=== PATIENT | female | born 1945 | race Caucasian/White ===

== ENCOUNTER 2017-06-22 12:51 | Emergency (ER) | payer OTHER, MEDICARE ==
[2017-06-22 13:00] VITALS: BP 142/94
--- NOTE | 2017-06-22 14:13 | CR ---
Chest and right ribs: Frontal view of the chest was obtained as well as 3 views of the right ribs. Comparison: Previous chest and right rib exam of 01/24/16. Old healed left-sided rib fracture is noted. Lungs are clear. Heart size and mediastinum are within normal limits. Multiple surgical clips are seen within the upper abdomen as well as at the gastroesophageal junction. No discrete fracture or other right sided rib abnormality is seen. Impression: 1. Old left-sided rib fracture is seen. 2. Nothing acute seen on chest x-ray. 3. No definite right-sided rib fracture is seen. Nondisplaced fracture could be missed. Diagnostic code #2
--- NOTE | 2017-06-22 14:22 | EDM.PDOC ---
ED HPI GENERAL MEDICAL PROBLEM - General Chief Complaint: Chest Pain Stated Complaint: POSS BROKEN RIB Time Seen by Provider: 06/22/17 13:13 Source of Information: Reports: Patient, Family (spouse), RN Notes Reviewed - History of Present Illness INITIAL COMMENTS - FREE TEXT/NARRATIVE: 71 year old female that injured her R chest wall 1 week ago, fell against a wooden box with bruising to R mid lateral back and also pain R anterior ribs. Pain was tolerable until she reached for something 2 days ago, felt a "pop" R anterior lower chest with severe pain with motion R anterior chest since than, pain is worse with moving, deep breathing. Has a bruise R upper leg but no other major pain or injury. Right Chest Pain Score (Numeric/FACES): 10 - Related Data Allergies Allergy/AdvReac Type Severity Reaction Status Date / Time Iodinated Contrast- Oral and Allergy Hives Verified 06/22/17 13:00 IV Dye [Iodinated Contrast Media - IV Dye] iodine Allergy Hives Verified 06/22/17 13:00 Home Meds: Home Meds Acetaminophen with Codeine [Tylenol with Codeine #3 Tablet] 1 tab PO Q6HR PRN [History] Bisoprolol [Zebeta] 10 mg PO DAILY 06/22/17 [History] Canagliflozin [Invokana] 100 mg PO DAILY 06/22/17 [History] ClonazePAM [KlonoPIN] 0.5 mg PO BEDTIME 06/22/17 [History] FLUoxetine [PROzac] 30 mg PO DAILY 06/22/17 [History] Hydrochlorothiazide 25 mg PO DAILY 06/22/17 [History] Melatonin 10 mg PO BEDTIME 06/22/17 [History] Vit B12 Injection. 06/22/17 [History] Vit D3 & K/Berberine HCl/Hops [Ostera] 1 tab PO DAILY 06/22/17 [History] Vit E/Zn/Lut/Lyco/Bilber/Hb261 [Lipotriad Vision Support Plus] 1 tab PO DAILY [History] amLODIPine [Norvasc] 5 mg PO DAILY 06/22/17 [History] glipiZIDE [Glipizide Xl] 2.5 mg PO DAILY 06/22/17 [History] rOPINIRole [Requip] 0.5 mg PO DAILY 06/22/17 [History] Past Medical History Cardiovascular History: Reports: Hypertension Gastrointestinal History: Reports: Colon Polyp, GERD, PUD, Other (See Below) Musculoskeletal History: Reports: Fibromyalgia, RA Neurological History: Reports: Migraines Endocrine/Metabolic History: Reports: Diabetes, Type II Oncologic (Cancer) History: Reports: Breast - Past Surgical History HEENT Surgical History: Reports: Cataract Surgery, Other (See Below) GI Surgical History: Reports: Appendectomy, Cholecystectomy, Other (See Below) Female Surgical History: Reports: Breast Reconstruction, D&C, Hysterectomy, Mastectomy Social & Family History - Tobacco Use Smoking Status *Q: Unknown Ever Smoked - Recreational Drug Use Recreational Drug Use: No - Living Situation & Occupation Living situation: Reports: , with Spouse Occupation: Retired ED ROS GENERAL - Review of Systems Review Of Systems: See Below Constitutional: Denies: Fever, Chills, Diaphoresis HEENT: Reports: No Symptoms Respiratory: Reports: Pleuritic Chest Pain. Denies: Shortness of Breath, Cough , Hemoptysis Cardiovascular: Reports: Chest Pain GI/Abdominal: Denies: Abdominal Pain, Nausea, Vomiting : Reports: No Symptoms Musculoskeletal: Reports: Back Pain (R upper lateral mid back) Skin: Reports: Bruising ED EXAM, GENERAL - Physical Exam Exam: See Below General Appearance: Alert, Mild Distress Eye Exam: Bilateral Eye: PERRL Head: Atraumatic Neck: Supple, Non-Tender Respiratory/Chest: No Respiratory Distress, Lungs Clear, Normal Breath Sounds, Other (tender R lower anterior ribs, brusing R lateral posterior chest wall) Cardiovascular: Regular Rate, Rhythm GI/Abdominal: Soft, Non-Tender. No: Guarding Back Exam: Other (bruising R upper lateral mid back). No: Paraspinal Tenderness , Vertebral Tenderness Extremities: Normal Range of Motion, Other (bruising R lateral thigh, no bony tenderness) Neurological: Alert, Oriented, No Motor/Sensory Deficits Skin Exam: Warm, Dry Course - Vital Signs Last Recorded V/S: Last Vital Signs Temp 98.2 F 06/22/17 12:57 Pulse 77 06/22/17 12:57 Resp 18 06/22/17 12:57 BP 142/94 H 06/22/17 12:57 Pulse Ox 95 06/22/17 13:00 - Re-Assessments/Exams Free Text/Narrative Re-Assessment/Exam: 06/22/17 14:17 no obvious rib fx Departure - Departure Time of Disposition: 14:22 Disposition: Home, Self-Care 01 Condition: Fair Clinical Impression: Fall Qualifiers: Encounter type: initial encounter Qualified Code(s): W19.XXXA - Unspecified fall, initial encounter Chest wall contusion Qualifiers: Encounter type: initial encounter Laterality: right Qualified Code(s): S20.211A - Contusion of right front wall of thorax, initial encounter Instructions: Fall Prevention in the Home, [id number], Contusion, Easy-to- Read, Chest Contusion, [id number] Referrals: Davis Ray MD [Primary Care Provider] - Forms: ED Department Discharge Additional Instructions: rest, avoid heavy lifting, alternate ice and heat as needed, continue tylenol or tylenol with codeine 2 to 3 times daily as needed for pain, follow up clinic if not much better within 10 to 14 days as expected.
== END 2017-06-22 14:37 | disposition home or self-care (01) ==
LOC: JD.ED 12:51
DX: S20.211A Contusion of right front wall of thorax, initial encounter (principal); S70.11XA Contusion of right thigh, initial encounter; I10 Essential (primary) hypertension; K21.9 Gastro-esophageal reflux disease without esophagitis; E11.9 Type 2 diabetes mellitus without complications; Z85.3 Personal history of malignant neoplasm of breast; Z98.49 Cataract extraction status, unspecified eye; Z90.49 Acquired absence of other specified parts of digestive tract; Z90.710 Acquired absence of both cervix and uterus; Z90.10 Acquired absence of unspecified breast and nipple; Z79.899 Other long term (current) drug therapy; Z88.8 Allergy status to other drugs, medicaments and biological substances; Z91.041 Radiographic dye allergy status; W01.0XXA Fall on same level from slipping, tripping and stumbling without subsequent striking against object, initial encounter
CPT/HCPCS: 71101-26-RT; 71101-RT; 99282; 99284

== ENCOUNTER 2018-03-21 05:58 | Emergency (ER) | payer MEDICARE, OTHER ==
[2018-03-21 06:10] VITALS: BP 166/95
--- NOTE | 2018-03-21 06:34 | EDM.PDOC ---
ED HPI GENERAL MEDICAL PROBLEM - General Chief Complaint: Lower Extremity Injury/Pain Stated Complaint: poss foot injury Time Seen by Provider: 03/21/18 06:25 Source of Information: Reports: Patient, RN Notes Reviewed - History of Present Illness INITIAL COMMENTS - FREE TEXT/NARRATIVE: 72-year-old lady injured right foot 2 days ago. She was walking with her cane and accidentally brought her cane down with "considerable force" onto the distal aspect of her right foot. She has had quite bothersome discomfort of that area of her foot since the injury. Mild discomfort at rest but continued quite severe pain with weightbearing. No other recent injury. Right Feet Pain Score (Numeric/FACES): 10 - Related Data Allergies Allergy/AdvReac Type Severity Reaction Status Date / Time Iodinated Contrast- Oral and Allergy Hives Verified 06/22/17 13:00 IV Dye [Iodinated Contrast Media - IV Dye] iodine Allergy Hives Verified 06/22/17 13:00 Home Meds: Home Meds Acetaminophen with Codeine [Tylenol with Codeine #3 Tablet] 1 tab PO Q6HR PRN [History] Bisoprolol [Zebeta] 10 mg PO DAILY 06/22/17 [History] Canagliflozin [Invokana] 100 mg PO DAILY 06/22/17 [History] ClonazePAM [KlonoPIN] 0.5 mg PO BEDTIME 06/22/17 [History] FLUoxetine [PROzac] 40 mg PO DAILY 06/22/17 [History] Hydrochlorothiazide 25 mg PO DAILY 06/22/17 [History] Melatonin 10 mg PO BEDTIME 06/22/17 [History] Vit B12 Injection. 1 injection IM ASDIRECTED 06/22/17 [History] Vit D3 & K/Berberine HCl/Hops [Ostera] 1 tab PO DAILY 06/22/17 [History] Vit E/Zn/Lut/Lyco/Bilber/Hb261 [Lipotriad Vision Support Plus] 1 tab PO DAILY [History] amLODIPine [Norvasc] 5 mg PO DAILY 06/22/17 [History] glipiZIDE [Glipizide Xl] 2.5 mg PO DAILY 06/22/17 [History] rOPINIRole [Requip] 1 mg PO DAILY 06/22/17 [History] ALPRAZolam [Alprazolam] 0.5 mg PO DAILY 03/21/18 [History] ALPRAZolam [Xanax XR] 0.5 mg PO BEDTIME 03/21/18 [History] Lidocaine 5% [Lidoderm 5%] 1 patch TOP ASDIRECTED PRN 03/21/18 [History] rOPINIRole [Requip] 2 mg PO BEDTIME 03/21/18 [History] Past Medical History Cardiovascular History: Reports: Hypertension Gastrointestinal History: Reports: Colon Polyp, GERD, PUD Musculoskeletal History: Reports: Fibromyalgia, RA Neurological History: Reports: Migraines Psychiatric History: Reports: Anxiety Endocrine/Metabolic History: Reports: Diabetes, Type II Oncologic (Cancer) History: Reports: Breast - Past Surgical History HEENT Surgical History: Reports: Cataract Surgery GI Surgical History: Reports: Appendectomy, Cholecystectomy, Other (See Below) Other GI Surgeries/Procedures: gasterectomy Female Surgical History: Reports: Breast Reconstruction, D&C, Hysterectomy, Mastectomy Oncologic Surgical History: Reports: Mastectomy Social & Family History - Family History Family Medical History: Noncontributory - Tobacco Use Smoking Status *Q: Never Smoker - Recreational Drug Use Recreational Drug Use: No - Living Situation & Occupation Living situation: Reports: , with Spouse Occupation: Retired Review of Systems - Review of Systems Review Of Systems: See Below Constitutional: Reports: No Symptoms Mouth/Throat: Reports: No Symptoms Respiratory: Reports: No Symptoms Cardiovascular: Denies: Chest Pain GI/Abdominal: Denies: Abdominal Pain, Nausea, Vomiting Musculoskeletal: Reports: Foot Pain (Right foot) Skin: Reports: Bruising (Mild right foot) Neurological: Denies: Numbness, Tingling ED EXAM, GENERAL - Physical Exam Exam: See Below General Appearance: Alert, No Apparent Distress Head: Atraumatic Neck: Supple Respiratory/Chest: No Respiratory Distress Extremities: Joint Swelling (There is tenderness, mild swelling and very mild bruising of the MTP area second third and fourth toes of right foot. No visible deformity. Mild localized swelling.). No: Increased Warmth, Redness Neurological: No Motor/Sensory Deficits Course - Vital Signs Last Recorded V/S: Last Vital Signs Temp 97.3 F 03/21/18 06:07 Pulse 97 03/21/18 06:07 Resp 16 03/21/18 06:07 BP 166/95 H 03/21/18 06:07 Pulse Ox 94 L 03/21/18 06:07 - Orders/Labs/Meds Orders: Active Orders 24 hr Category Date Time Status Foot Comp Min 3V Rt [CR] Stat Exams 03/21/18 06:30 Taken - Re-Assessments/Exams Free Text/Narrative Re-Assessment/Exam: 03/21/18 06:54 X-rays of foot,no fracture seen Departure - Departure Time of Disposition: 06:15 Disposition: Home, Self-Care 01 Condition: Fair Clinical Impression: Contusion of foot Qualifiers: Encounter type: initial encounter Laterality: right Qualified Code(s): S90.31XA - Contusion of right foot, initial encounter - Discharge Information Instructions: Foot Contusion, [id number] Referrals: Davis Ray MD [Primary Care Provider] - Forms: ED Department Discharge Additional Instructions: Rest and elevate foot as much as possible, ice packs as needed for swelling, you may take Tylenol 3-4 times daily as needed for discomfort, follow up clinic and have rechecked if not much better within 3-5 days as expected - My Orders Last 24 Hours: My Active Orders 03/21/18 06:30 Foot Comp Min 3V Rt [CR] Stat - Assessment/Plan Last 24 Hours: My Active Orders 03/21/18 06:30 Foot Comp Min 3V Rt [CR] Stat
--- NOTE | 2018-03-21 07:36 | CR ---
Right foot: Four views of the right foot were obtained. Soft tissue swelling is seen. Spur noted off the plantar margin and at the attachment of the Achilles tendon to the calcaneus. Degenerative change is noted within the first MTP joint. On the lateral view there is a detached bony density being seen to be involving the base of the proximal phalanx of the first digit. Uncertain if this is acute or chronic or possibly both. Old corner fracture is felt to be present involving the distal corner of the middle phalanx of the second toe. Acute fracture felt to be present within the mid to distal shaft of the proximal phalanx of the fourth toe. Old healed fracture deformity seen within the proximal phalanx of the fifth toe. No additional abnormality is seen. Impression: 1. Nondisplaced fracture involving the shaft of the proximal phalanx of the fourth toe. 2. Degenerative change within the first MTP joint. Detached bony density noted off the base of the proximal phalanx of the first digit as seen on the lateral view which appears mostly old but difficult to exclude a small acute fracture. 3. Other incidental findings. Diagnostic code #3
== END 2018-03-21 07:02 | disposition home or self-care (01) ==
LOC: JD.ED 05:58
DX: S92.514A Nondisplaced fracture of proximal phalanx of right lesser toe(s), initial encounter for closed fracture (principal); E11.9 Type 2 diabetes mellitus without complications; K21.9 Gastro-esophageal reflux disease without esophagitis; I10 Essential (primary) hypertension; Z90.49 Acquired absence of other specified parts of digestive tract; Z79.84 Long term (current) use of oral hypoglycemic drugs; Z79.899 Other long term (current) drug therapy
CPT/HCPCS: 73630-26-RT; 73630-RT; 99283

== ENCOUNTER 2018-03-26 11:16 | Emergency (ER) | payer OTHER, MEDICARE ==
[2018-03-26 11:26] VITALS: BP 160/88
--- NOTE | 2018-03-26 11:27 | EDM.PDOC ---
ED HPI GENERAL MEDICAL PROBLEM - General Chief Complaint: Chest Pain Stated Complaint: RIB PAIN Time Seen by Provider: 03/26/18 11:26 Source of Information: Reports: Patient History Limitations: Reports: No Limitations - History of Present Illness INITIAL COMMENTS - FREE TEXT/NARRATIVE: Desire is a pleasant 72yo female patient, known to me, presents ambulatory to ED today with complaints of lt sided rib pain s/p fall onto table at home after losing her balance. Pain is worsening. She has taken tylenol, tylenol with codeine, heating pad, and a patch OTC for pain. She has difficulty sleeping and moving around. No CP, SOB, cough, dizziness or other associated symptoms. She is ambulating with a cane due to a torn muscle in her left thigh. She tells me she is scheduled to go to [facility] for repair of this sometime this month. She does not have good balance with this injury which has been chronic for her since July. Onset: Gradual (gradual worsening pain s/p fall 5 days ago) Location: Reports: Chest (left mid to lower ribs) Quality: Reports: Dull (all the time), Sharp (with movements) Severity: Moderate Improves with: Reports: Heat Therapy, Rest Worsens with: Reports: Movement (and laying on either side) Associated Symptoms: Denies: Cough, Diaphoresis, Fever/Chills, Nausea/Vomiting, Shortness of Breath, Syncope Left Chest Pain Score (Numeric/FACES): 10 - Related Data Allergies Allergy/AdvReac Type Severity Reaction Status Date / Time Iodinated Contrast- Oral and Allergy Hives Verified 03/26/18 11:22 IV Dye [Iodinated Contrast Media - IV Dye] iodine Allergy Hives Verified 03/26/18 11:22 Home Meds: Home Meds Acetaminophen with Codeine [Tylenol with Codeine #3 Tablet] 1 tab PO Q6HR PRN [History] Bisoprolol [Zebeta] 10 mg PO DAILY 06/22/17 [History] Canagliflozin [Invokana] 100 mg PO DAILY 06/22/17 [History] ClonazePAM [KlonoPIN] 0.5 mg PO BEDTIME 06/22/17 [History] FLUoxetine [PROzac] 40 mg PO DAILY 06/22/17 [History] Hydrochlorothiazide 25 mg PO DAILY 06/22/17 [History] Melatonin 10 mg PO BEDTIME 06/22/17 [History] Vit B12 Injection. 1 injection IM ASDIRECTED 06/22/17 [History] Vit D3 & K/Berberine HCl/Hops [Ostera] 1 tab PO DAILY 06/22/17 [History] amLODIPine [Norvasc] 5 mg PO DAILY 06/22/17 [History] glipiZIDE [Glipizide Xl] 2.5 mg PO DAILY 06/22/17 [History] rOPINIRole [Requip] 1 mg PO DAILY 06/22/17 [History] ALPRAZolam [Alprazolam] 0.5 mg PO DAILY 03/21/18 [History] ALPRAZolam [Xanax XR] 0.5 mg PO BEDTIME 03/21/18 [History] Lidocaine 5% [Lidoderm 5%] 1 patch TOP ASDIRECTED PRN 03/21/18 [History] rOPINIRole [Requip] 2 mg PO BEDTIME 03/21/18 [History] Past Medical History Cardiovascular History: Reports: Hypertension Gastrointestinal History: Reports: Colon Polyp, GERD, PUD Musculoskeletal History: Reports: Fibromyalgia, RA Neurological History: Reports: Migraines Psychiatric History: Reports: Anxiety Endocrine/Metabolic History: Reports: Diabetes, Type II Oncologic (Cancer) History: Reports: Breast - Past Surgical History HEENT Surgical History: Reports: Cataract Surgery GI Surgical History: Reports: Appendectomy, Cholecystectomy, Other (See Below) Other GI Surgeries/Procedures: gasterectomy Female Surgical History: Reports: Breast Reconstruction, D&C, Hysterectomy, Mastectomy Oncologic Surgical History: Reports: Mastectomy Social & Family History - Family History Family Medical History: Noncontributory - Tobacco Use Smoking Status *Q: Never Smoker - Recreational Drug Use Recreational Drug Use: No - Living Situation & Occupation Living situation: Reports: , with Spouse Occupation: Retired ED ROS GENERAL - Review of Systems Review Of Systems: See Below Constitutional: Reports: No Symptoms HEENT: Reports: No Symptoms Respiratory: Reports: No Symptoms. Denies: Shortness of Breath, Cough Cardiovascular: Reports: No Symptoms. Denies: Chest Pain, Dyspnea on Exertion, Orthopnea GI/Abdominal: Reports: No Symptoms Musculoskeletal: Reports: Other (left sided mid to lower rib pain) Skin: Reports: No Symptoms Hematologic/Lymphatic: Reports: Other (s/p breast ca with mastectomy to lt side) ED EXAM, GENERAL - Physical Exam Exam: See Below Exam Limited By: No Limitations General Appearance: Alert, WD/WN, No Apparent Distress, Other (pleasant and talkative) Eye Exam: Bilateral Eye: EOMI, PERRL Ears: Normal External Exam, Hearing Grossly Normal Nose: Normal Inspection Throat/Mouth: Normal Inspection, Normal Lips, Normal Voice, No Airway Compromise Head: Atraumatic, Normocephalic Neck: Normal Inspection Respiratory/Chest: No Respiratory Distress, Lungs Clear, Normal Breath Sounds. No: No Accessory Muscle Use Cardiovascular: Regular Rate, Rhythm, No Murmur GI/Abdominal: Normal Bowel Sounds, Soft, Non-Tender (Female) Exam: Deferred Rectal (Female) Exam: Deferred Neurological: Alert, Oriented, Normal Cognition Psychiatric: Normal Affect, Normal Mood Skin Exam: Warm, Dry, Intact, Other (surgical scar from mastectomy to left chest wall; no ecchymosis, no crepitus about chest wall tissues. chest wall to left mediolateral side, mid to lower ribs is tender with palpation. ) Course - Vital Signs Last Recorded V/S: Last Vital Signs Temp 97.6 F 03/26/18 11:22 Pulse 80 03/26/18 11:22 Resp 18 03/26/18 11:22 BP 160/88 H 03/26/18 11:22 Pulse Ox 92 L 03/26/18 11:22 - Orders/Labs/Meds Orders: Active Orders 24 hr Category Date Time Status Ribs 2V w Chest Lt [CR] Stat Exams 03/26/18 11:40 Taken Meds: Medications Discontinued Medications Generic Name Dose Route Start Last Admin Trade Name Deshawn PRN Reason Stop Dose Admin Tizanidine HCl 4 mg 03/26/18 21:00 Zanaflex PO 03/26/18 21:01 DAILY ONE Tizanidine HCl 4 mg 03/26/18 11:46 03/26/18 11:55 Zanaflex PO 03/26/18 11:47 4 mg DAILY ONE Administration - Radiology Interpretation Free Text/Narrative:: 2 view CXR and 2 view lt rib films reviewed with Dr. Aleman: suspicious for 2 hairline lateral rib fractures--will await radiologist final interp. - Re-Assessments/Exams Free Text/Narrative Re-Assessment/Exam: 03/26/18 11:48 zanaflex ordered PO prior to xray. Rib and CXR ordered. Free Text/Narrative Re-Assessment/Exam: 03/26/18 12:48 After xanaflex patient feels pain is less, specifically with rest. Departure - Departure Time of Disposition: 12:48 Disposition: Home, Self-Care 01 Condition: Good Clinical Impression: Fracture of rib Qualifiers: Encounter type: initial encounter Rib fracture type: multiple ribs Fracture type: closed Laterality: left Qualified Code(s): S22.42XA - Multiple fractures of ribs, left side, initial encounter for closed fracture Instructions: Rib Fracture, [id number] Forms: ED Department Discharge Additional Instructions: Likely 2 hairline rib fractures present on xrays; awaiting Radiologists final interpretation. Rib fractures and rib contusions are treated the same. Continue with tylenol or ibuprofen 3 times daily with food for discomfort, can continue with the patch that you are using at home and heat. Recommend deep breathing exercises every hour while awake. Prescription for muscle relaxant will be sent home; zanaflex by mouth twice daily as needed; do not take codeine or other narcotic medications with this. Recommend no driving while taking this muscle relaxant due to possible sedation. Follow up with PCP, Dr. Ray in 1-2 weeks if needed. - My Orders Last 24 Hours: My Active Orders 03/26/18 11:40 Ribs 2V w Chest Lt [CR] Stat - Assessment/Plan Last 24 Hours: My Active Orders 03/26/18 11:40 Ribs 2V w Chest Lt [CR] Stat
[2018-03-26] MEDS ORDERED: tiZANidine 4 MG Tab PO ONE ×2 (11:46→21:00)
--- NOTE | 2018-03-27 07:55 | CR ---
Chest and right ribs: Frontal view of the chest was obtained as well as three views of the right ribs. Fracture is felt to be present within the anterior eighth rib. Additional fracture is seen within the posterolateral eighth rib which shows slight increased density and is felt compatible with healing fracture. No additional rib abnormality is appreciated. Surgical clips are seen within the abdomen as well as within the left axillary region. Lungs are clear with no acute parenchymal densities. Heart size is normal. Tortuous thoracic aorta is seen. Impression: 1. Subacute healing fracture within the posterolateral right eighth rib. Acute fracture is suspected within the anterior right eighth rib. 2. Other incidental findings. Nothing acute is otherwise seen within the chest. Diagnostic code #3
== END 2018-03-26 12:55 | disposition home or self-care (01) ==
LOC: JD.ED 11:16
DX: S22.42XA Multiple fractures of ribs, left side, initial encounter for closed fracture (principal); I10 Essential (primary) hypertension; E11.9 Type 2 diabetes mellitus without complications; Z91.041 Radiographic dye allergy status; Z79.899 Other long term (current) drug therapy; W19.XXXA Unspecified fall, initial encounter
CPT/HCPCS: 71101; 99283; A9270

== ENCOUNTER 2019-05-13 00:02 | Emergency (ER) | payer OTHER, MEDICARE ==
[2019-05-13 00:12] VITALS: BP 173/91
--- NOTE | 2019-05-13 02:18 | EDM.PDOC ---
ED HPI GENERAL MEDICAL PROBLEM - General Chief Complaint: Lower Extremity Injury/Pain Stated Complaint: KNEE PAIN Time Seen by Provider: 05/13/19 00:39 Source of Information: Reports: Patient History Limitations: Reports: No Limitations - History of Present Illness INITIAL COMMENTS - FREE TEXT/NARRATIVE: This is a 73-year-old female. She on was chasing a shopping cart in the parking lot and apparently fell right on her right knee. She has been home resting when it seems to get more swollen and more discolored and more painful since she comes to the ER for evaluation. She is using a cane to walk but it is very difficult for her to get around due to the pain in her right knee and the swelling of her right knee. She denies any other acute trauma when she fell. Due to the swelling on the pain she comes to the ER. Right Knee Pain Score (Numeric/FACES): 10 - Related Data Allergies Allergy/AdvReac Type Severity Reaction Status Date / Time Iodinated Contrast- Oral and Allergy Hives Verified 03/26/18 11:22 IV Dye [Iodinated Contrast Media - IV Dye] iodine Allergy Hives Verified 03/26/18 11:22 Home Meds: Home Meds Acetaminophen with Codeine [Tylenol with Codeine #3 Tablet] 1 tab PO Q6HR PRN [History] Bisoprolol [Zebeta] 10 mg PO DAILY 06/22/17 [History] Canagliflozin [Invokana] 100 mg PO DAILY 06/22/17 [History] ClonazePAM [KlonoPIN] 0.5 mg PO BEDTIME 06/22/17 [History] FLUoxetine [PROzac] 40 mg PO DAILY 06/22/17 [History] Melatonin 10 mg PO BEDTIME 06/22/17 [History] Vit B12 Injection. 1 injection IM ASDIRECTED 06/22/17 [History] Vit D3 & K/Berberine HCl/Hops [Ostera] 1 tab PO DAILY 06/22/17 [History] amLODIPine [Norvasc] 5 mg PO DAILY 06/22/17 [History] glipiZIDE [Glipizide Xl] 2.5 mg PO DAILY 06/22/17 [History] hydroCHLOROthiazide [Hydrochlorothiazide] 25 mg PO DAILY 06/22/17 [History] rOPINIRole [Requip] 1 mg PO DAILY 06/22/17 [History] ALPRAZolam [Alprazolam] 0.5 mg PO DAILY 03/21/18 [History] ALPRAZolam [Xanax XR] 0.5 mg PO BEDTIME 03/21/18 [History] Lidocaine 5% [Lidoderm 5%] 1 patch TOP ASDIRECTED PRN 03/21/18 [History] rOPINIRole [Requip] 2 mg PO BEDTIME 03/21/18 [History] Hydrocodone/Acetaminophen [Hydrocodon-Acetaminophen 5-325] 1 - 2 each PO Q6H PRN #20 tablet 05/13/19 [Rx] Past Medical History Cardiovascular History: Reports: Hypertension Gastrointestinal History: Reports: Colon Polyp, GERD, PUD Musculoskeletal History: Reports: Fibromyalgia, RA Neurological History: Reports: Migraines Psychiatric History: Reports: Anxiety Endocrine/Metabolic History: Reports: Diabetes, Type II Oncologic (Cancer) History: Reports: Breast - Past Surgical History HEENT Surgical History: Reports: Cataract Surgery GI Surgical History: Reports: Appendectomy, Cholecystectomy, Other (See Below) Other GI Surgeries/Procedures: gasterectomy Female Surgical History: Reports: Breast Reconstruction, D&C, Hysterectomy, Mastectomy Musculoskeletal Surgical History: Reports: Other (See Below) Other Musculoskeletal Surgeries/Procedures:: lt hip bursa sx Oncologic Surgical History: Reports: Mastectomy Social & Family History - Family History Family Medical History: Noncontributory - Tobacco Use Smoking Status *Q: Never Smoker - Caffeine Use Caffeine Use: Reports: Coffee, Tea - Recreational Drug Use Recreational Drug Use: No - Living Situation & Occupation Living situation: Reports: , with Spouse Occupation: Retired Review of Systems - Review of Systems Review Of Systems: See Below Constitutional: Denies: Chills, Fever Eyes: Reports: No Symptoms Ears: Reports: No Symptoms Nose: Reports: No Symptoms Mouth/Throat: Reports: No Symptoms Respiratory: Reports: No Symptoms Cardiovascular: Reports: No Symptoms GI/Abdominal: Reports: No Symptoms Genitourinary: Reports: No Symptoms Musculoskeletal: Reports: Joint Pain, Joint Swelling Neurological: Reports: No Symptoms Psychiatric: Reports: No Symptoms ED EXAM, GENERAL - Physical Exam Exam: See Below Exam Limited By: No Limitations General Appearance: Alert, WD/WN, No Apparent Distress Eye Exam: Bilateral Eye: Normal Inspection Ears: Normal External Exam Nose: Normal Inspection Throat/Mouth: Normal Inspection, Normal Lips, Normal Voice, No Airway Compromise Head: Normocephalic Neck: Supple Respiratory/Chest: No Respiratory Distress Back Exam: Decreased Range of Motion Extremities: Other (Right knee does have an effusion, it is very tender just on palpation, over the patella and down the anterior shelton she has marked bruising and hematoma noted, she is not able to flex that knee more than about 15 or 20 , I'm not able to test the ACL and PCL, she is way too tender and swollen to check the collateral ligaments, I'm not able to even touch the patella due to the sensitivity of her knee, the lower extremity appears to be atraumatic) Neurological: Alert, Oriented Psychiatric: Normal Affect, Normal Mood Skin Exam: Warm, Dry Course - Vital Signs Last Recorded V/S: Last Vital Signs Temp 98.1 F 05/13/19 00:10 Pulse 74 05/13/19 00:10 Resp 18 05/13/19 00:10 BP 173/91 H 05/13/19 00:10 Pulse Ox 95 05/13/19 00:10 - Orders/Labs/Meds Orders: Active Orders 24 hr Category Date Time Status Knee 3V Rt [CR] Stat Exams 05/13/19 00:31 Taken - Radiology Interpretation Free Text/Narrative:: X-rays do not show any acute fractures though there is a suggestion of an effusion - Re-Assessments/Exams Free Text/Narrative Re-Assessment/Exam: 05/13/19 02:23 X-rays of the right knee did not suggest any acute fractures. There is a suggestion of effusion. I spoke to the patient regarding the x-ray findings. I suggested maybe crutches but she wants to stay with a cane since she is more stable with a cane. I also encouraged her not to wrap the knee since her lower legs will swell. I encouraged her to ice the knee down as much as possible and I 'll give her something for pain. She is to follow-up with Dr. Urbina this week for recheck. Departure - Departure Time of Disposition: 02:15 Disposition: Home, Self-Care 01 Condition: Fair Clinical Impression: Effusion, right knee Contusion of right knee Qualifiers: Encounter type: initial encounter Qualified Code(s): S80.01XA - Contusion of right knee, initial encounter Traumatic hematoma of right knee Qualifiers: Encounter type: initial encounter Qualified Code(s): S80.01XA - Contusion of right knee, initial encounter - Discharge Information *PRESCRIPTION DRUG MONITORING PROGRAM REVIEWED*: No *COPY OF PRESCRIPTION DRUG MONITORING REPORT IN PATIENT RIVERA: No Prescriptions: Hydrocodone/Acetaminophen [Hydrocodon-Acetaminophen 5-325] 1 - 2 each PO Q6H PRN #20 tablet PRN Reason: Pain Referrals: Tank Urbina MD [Physician] - Forms: ED Department Discharge Additional Instructions: Stay off the right knee is much as possible, follow-up with Dr. Urbina by calling his office on Wednesday to get an appointment to be seen this week, take the medication as needed for pain, keep ice on and off that right knee is much as possible, use your cane when you're up and trying to get about, return to the ER if needed - My Orders Last 24 Hours: My Active Orders 05/13/19 00:31 Knee 3V Rt [CR] Stat - Assessment/Plan Last 24 Hours: My Active Orders 05/13/19 00:31 Knee 3V Rt [CR] Stat
--- NOTE | 2019-05-15 11:07 | CR ---
Right knee: AP, lateral and sunrise patellar views of the right knee were obtained. Comparison: No previous knee exam. Slight osteophytes noted off the medial joint. Medial and lateral joint compartments are maintained in height on this exam. Joint space narrowing is noted within the medial patellofemoral joint with medial osteophytes off the patellofemoral joint. No discrete joint effusion is seen. No fracture or other abnormality is seen. Soft tissue swelling is present. Osteopenia is noted. Impression: 1. Mild degenerative change as noted above. 2. Osteopenia and soft tissue swelling. Diagnostic code #2
== END 2019-05-13 02:30 | disposition home or self-care (01) ==
LOC: JD.ED 00:02
DX: S80.01XA Contusion of right knee, initial encounter (principal); I10 Essential (primary) hypertension; M06.9 Rheumatoid arthritis, unspecified; E11.9 Type 2 diabetes mellitus without complications; F41.9 Anxiety disorder, unspecified; Z79.899 Other long term (current) drug therapy; Z98.49 Cataract extraction status, unspecified eye; Z90.49 Acquired absence of other specified parts of digestive tract; Z90.710 Acquired absence of both cervix and uterus; Z88.8 Allergy status to other drugs, medicaments and biological substances; Z91.041 Radiographic dye allergy status; W19.XXXA Unspecified fall, initial encounter
CPT/HCPCS: 73562-26-RT; 73562-RT; 99283; 99283-25

== ENCOUNTER 2019-05-20 11:22 | Emergency (ER) | payer OTHER, MEDICARE ==
[2019-05-20 11:37] VITALS: BP 152/75
--- NOTE | 2019-05-20 12:36 | EDM.PDOC ---
ED HPI GENERAL MEDICAL PROBLEM - General Chief Complaint: Lower Extremity Injury/Pain Stated Complaint: RT FOOT NOT BETTER Time Seen by Provider: 05/20/19 11:47 Source of Information: Reports: Patient, RN Notes Reviewed History Limitations: Reports: No Limitations - History of Present Illness INITIAL COMMENTS - FREE TEXT/NARRATIVE: Patient is a 73-year-old female who presents to the ED today for the recheck of injury sustained last week. The patient states she fell a week ago Wednesday, as she was chasing after shopping cart. She fell onto her right knee. The patient has developed bruising to the entire right lower leg, she is still able to bear weight but uses a cane, this is normal for her. She was to follow-up with Dr. Urbina's office this Wednesday, but was worried about an area of redness that has developed distal to a portion of bruising on her right lower leg, she is diabetic and was worried about a possible infection. She has gained more range of motion in her right knee than she had at initial time of trauma, and is not having any further issues into her right ankle or foot. Right Lower Leg Pain Score (Numeric/FACES): 8 - Related Data Allergies Allergy/AdvReac Type Severity Reaction Status Date / Time amoxicillin Allergy Hives Verified 05/20/19 11:40 doxycycline Allergy Rash Verified 05/20/19 11:41 Iodinated Contrast- Oral and Allergy Hives Verified 05/20/19 11:32 IV Dye [Iodinated Contrast Media - IV Dye] iodine Allergy Hives Verified 05/20/19 11:32 minocycline Allergy Rash Verified 05/20/19 11:41 zolpidem [From Ambien] Allergy Disorientat Verified 05/20/19 11:40 ion Home Meds: Home Meds Acetaminophen with Codeine [Tylenol with Codeine #3 Tablet] 1 tab PO Q6HR PRN [History] Bisoprolol [Zebeta] 10 mg PO DAILY 06/22/17 [History] ClonazePAM [KlonoPIN] 0.5 mg PO BEDTIME 06/22/17 [History] FLUoxetine [PROzac] 40 mg PO DAILY 06/22/17 [History] Melatonin 10 mg PO BEDTIME 06/22/17 [History] Vit B12 Injection. 1 injection IM ASDIRECTED 06/22/17 [History] Vit D3 & K/Berberine HCl/Hops [Ostera] 1 tab PO DAILY 06/22/17 [History] amLODIPine [Norvasc] 5 mg PO DAILY 06/22/17 [History] glipiZIDE [Glipizide Xl] 2.5 mg PO DAILY 06/22/17 [History] hydroCHLOROthiazide [Hydrochlorothiazide] 25 mg PO DAILY 06/22/17 [History] rOPINIRole [Requip] 1 mg PO DAILY 06/22/17 [History] Lidocaine 5% [Lidoderm 5%] 1 patch TOP ASDIRECTED PRN 03/21/18 [History] rOPINIRole [Requip] 2 mg PO BEDTIME 03/21/18 [History] Albuterol Sulfate [Proair Respiclick] 1 - 2 puff INH ASDIRECTED PRN 05/20/19 [ History] Codeine/Promethazine HCl [Promethazine-Codeine Syrup] 10 ml PO ASDIRECTED [History] Empagliflozin [Jardiance] 10 mg PO DAILY 05/20/19 [History] Famotidine [Pepcid] 40 mg PO BEDTIME 05/20/19 [History] Fluticasone Furoate [Arnuity Ellipta] 1 spray PO DAILY 05/20/19 [History] Krill/Om-3/DHA/EPA/Phospho/Ast [[place]-3 Krill Oil 300 mg Sfgl] 300 mg PO DAILY 05/20/19 [History] Milnacipran HCl [Savella] 50 mg PO Q12H 05/20/19 [History] Multivitamin With Minerals. 1 tab PO DAILY 05/20/19 [History] Naltrexone. 05/20/19 [History] Ondansetron [Zofran ODT] 4 mg PO Q6H PRN 05/20/19 [History] Papaya 6 tab PO ASDIRECTED 05/20/19 [History] Potassium Chloride 10 meq PO ASDIRECTED 05/20/19 [History] Rosuvastatin [Crestor] 5 mg PO DAILY 05/20/19 [History] Vitamin E 400 unit PO DAILY 05/20/19 [History] cycloSPORINE [Restasis] 1 drop EYEBOTH BID 05/20/19 [History] Past Medical History Cardiovascular History: Reports: Hypertension Gastrointestinal History: Reports: Colon Polyp, GERD, PUD Musculoskeletal History: Reports: Fibromyalgia, RA Neurological History: Reports: Migraines Psychiatric History: Reports: Anxiety Endocrine/Metabolic History: Reports: Diabetes, Type II Oncologic (Cancer) History: Reports: Breast - Past Surgical History HEENT Surgical History: Reports: Cataract Surgery GI Surgical History: Reports: Appendectomy, Cholecystectomy, Other (See Below) Other GI Surgeries/Procedures: gasterectomy Female Surgical History: Reports: Breast Reconstruction, D&C, Hysterectomy, Mastectomy Musculoskeletal Surgical History: Reports: Other (See Below) Other Musculoskeletal Surgeries/Procedures:: lt hip bursa sx Oncologic Surgical History: Reports: Mastectomy Social & Family History - Family History Family Medical History: Noncontributory - Tobacco Use Smoking Status *Q: Never Smoker - Caffeine Use Caffeine Use: Reports: Coffee, Tea - Recreational Drug Use Recreational Drug Use: No - Living Situation & Occupation Living situation: Reports: , with Spouse Occupation: Retired Review of Systems - Review of Systems Review Of Systems: See Below Constitutional: Denies: Chills, Fever Eyes: Reports: No Symptoms Ears: Reports: No Symptoms Nose: Reports: No Symptoms Mouth/Throat: Reports: No Symptoms Respiratory: Reports: No Symptoms Cardiovascular: Reports: No Symptoms GI/Abdominal: Reports: No Symptoms Genitourinary: Reports: No Symptoms Musculoskeletal: Reports: Leg Pain (R lower leg) Skin: Reports: Bruising (extensive bruising to anterior RLE, starting above knee and continuing to below ankle.), Erythema (slight redness to distal portion of bruise on R lower extremity) Neurological: Reports: No Symptoms Psychiatric: Reports: No Symptoms ED EXAM, GENERAL - Physical Exam Exam: See Below Exam Limited By: No Limitations General Appearance: Alert, WD/WN, No Apparent Distress Eye Exam: Bilateral Eye: EOMI, Normal Inspection, PERRL Throat/Mouth: Normal Inspection, Normal Oropharynx, Normal Voice Head: Atraumatic, Normocephalic Neck: Normal Inspection, Supple, Non-Tender, Full Range of Motion Respiratory/Chest: No Respiratory Distress, Lungs Clear, Normal Breath Sounds, No Accessory Muscle Use, Chest Non-Tender Cardiovascular: Normal Peripheral Pulses, Regular Rate, Rhythm, No Murmur Peripheral Pulses: 3+: Dorsalis Pedis (L), Dorsalis Pedis (R) GI/Abdominal: Normal Bowel Sounds, Soft, Non-Tender, No Distention, No Mass Extremities: No Pedal Edema, Normal Capillary Refill, Other (Diffuse bruising to entire right lower anterior portion of RLE, this starts above the knee, and extends to below the ankle.) Neurological: Alert, Oriented, Normal Cognition, No Motor/Sensory Deficits Psychiatric: Normal Affect, Normal Mood Skin Exam: Warm, Dry, Intact, Ecchymosis (Diffuse bruising to entire right lower anterior portion of RLE, this starts above the knee, and extends to below the ankle. There is an area of slight reddening, distal to the anterior portion of the bruising just above the ankle joint. There is also some slight bruising noted to the popliteal fossa.) Course - Vital Signs Last Recorded V/S: Last Vital Signs Temp 97.2 F 05/20/19 11:33 Pulse 96 05/20/19 11:33 Resp BP 152/75 H 05/20/19 11:33 Pulse Ox 97 05/20/19 11:33 - Orders/Labs/Meds Labs: Laboratory Tests 05/20/19 Range/Units 12:50 WBC 8.75 (3.98-10.04) K/mm3 RBC 4.43 (3.98-5.22) M/mm3 Hgb 13.8 (11.2-15.7) gm/L Hct 41.5 (34.1-44.9) % MCV 93.7 (79.4-94.8) fl MCH 31.2 (25.6-32.2) pg MCHC 33.3 (32.2-35.5) g/dl RDW Std Deviation 43.9 (36.4-46.3) fL Plt Count 300 (182-369) K/mm3 MPV 10.2 (9.4-12.3) fl Neutrophils % (Manual) 63 H (40-60) % Band Neutrophils % 0 (0-10) % Lymphocytes % (Manual) 21 (20-40) % Atypical Lymphs % 0 % Monocytes % (Manual) 11 H (2-10) % Eosinophils % (Manual) 5 (0.7-5.8) % Basophils % (Manual) 0 L (0.1-1.2) Platelet Estimate Adequate RBC Morph Comment Normal - Re-Assessments/Exams Free Text/Narrative Re-Assessment/Exam: 05/20/19 12:37 Patient presents to the ED for the evaluation of a spot of redness on her leg that is developed over the last couple days. The patient's leg has extensive bruising as previously documented, have ordered a CBC to evaluate for any sort of bacterial infection or cellulitis at this time. 05/20/19 13:35 Patient's CBC is done, and demonstrates no increased WBCs. The redness might just be irritation due to the lingering hematoma. Departure - Departure Time of Disposition: 14:14 Disposition: Home, Self-Care 01 Condition: Fair Clinical Impression: Pain of right knee and lower leg, Contusion of right lower leg, sequela - Discharge Information *PRESCRIPTION DRUG MONITORING PROGRAM REVIEWED*: No *COPY OF PRESCRIPTION DRUG MONITORING REPORT IN PATIENT RIVERA: No Instructions: Musculoskeletal Pain Referrals: Davis Ray MD [Primary Care Provider] - Forms: ED Department Discharge Additional Instructions: You have been evaluated in the ED for your right lower leg injury. Your lab work did not demonstrate any sort of bacterial infection or cellulitis at this time. Please use ice as tolerated to the affected area. You may take tylenol 500 mg or ibuprofen 600mg q6 hrs for pain relief. Please do so until you have a tolerable level of pain with activity. Do not exceed 4000mg tylenol, Do not exceed 3200mg ibuprofen in a 24 hour time period. You may take your other prescription pain medications as previously directed, as needed for pain not relieved by Tylenol or ibuprofen alone. Please return to ED if your symptoms should change or worsen.
== END 2019-05-20 14:35 | disposition home or self-care (01) ==
LOC: JD.ED 11:22
DX: S80.11XD Contusion of right lower leg, subsequent encounter (principal); I10 Essential (primary) hypertension; M06.9 Rheumatoid arthritis, unspecified; E11.9 Type 2 diabetes mellitus without complications; F41.9 Anxiety disorder, unspecified; Z98.49 Cataract extraction status, unspecified eye; Z90.49 Acquired absence of other specified parts of digestive tract; Z90.710 Acquired absence of both cervix and uterus; Z79.899 Other long term (current) drug therapy; Z88.1 Allergy status to other antibiotic agents; Z91.041 Radiographic dye allergy status; Z88.8 Allergy status to other drugs, medicaments and biological substances; W19.XXXD Unspecified fall, subsequent encounter
CPT/HCPCS: 36415; 85007; 85027; 99282; 99283

== ENCOUNTER 2020-10-03 15:45 | Emergency (ER) | payer OTHER, MEDICARE ==
[2020-10-03 15:54] VITALS: BP 129/80; PULSE 85
--- NOTE | 2020-10-03 16:31 | EDM.PDOC ---
ED HPI GENERAL MEDICAL PROBLEM - General Chief Complaint: Upper Extremity Injury/Pain Stated Complaint: [facility] Time Seen by Provider: 10/03/20 16:04 Source of Information: Reports: Patient, RN Notes Reviewed History Limitations: Reports: No Limitations - History of Present Illness INITIAL COMMENTS - FREE TEXT/NARRATIVE: Patient is a 75-year-old female who presents to the ED by [facility] for the evaluation of a fall. She was going into a store, and ended up tripping over the curb ledge. She states that she fell onto her face, and with an outstretched left arm. She is complaining of pain in her inferior left shoulder just below her shoulder joint. She states she did have a nosebleed, but this has subsequently stopped. She was given 1 mg IV Dilaudid in route to the ER via [facility]. Patient is not complaining of any numbness or tingling distal to the injury, she has not had any prior injury to this area. She has no neurological deficits noted. She is not complaining of any blurred vision, double vision, headache, or other worrisome signs and symptoms of head injury. Patient denies any other sick-like symptoms, fever/chills, cough/shortness of breath, nausea/vomiting/diarrhea. Treatments PUBLIC HEALTH REPRESENTATIVE: Reports: IV/IO, Other (see below) Other Treatments PUBLIC HEALTH REPRESENTATIVE: dilaudid Left Arm Pain Score (Numeric/FACES): 7 - Related Data Allergies Allergy/AdvReac Type Severity Reaction Status Date / Time amoxicillin Allergy Hives Verified 10/03/20 15:54 doxycycline Allergy Rash Verified 10/03/20 15:54 Iodinated Contrast Media Allergy Hives Verified 10/03/20 15:54 [Iodinated Contrast Media - IV Dye] iodine Allergy Hives Verified 10/03/20 15:54 minocycline Allergy Rash Verified 10/03/20 15:54 zolpidem [From Ambien] AdvReac Disorientat Verified 10/03/20 15:54 ion Home Meds: Home Meds Acetaminophen with Codeine [Tylenol with Codeine #3 Tablet] 1 tab PO Q6HR PRN 06/22/17 [History] Bisoprolol [Zebeta] 10 mg PO DAILY 06/22/17 [History] ClonazePAM [KlonoPIN] 0.5 mg PO BEDTIME 06/22/17 [History] FLUoxetine [PROzac] 40 mg PO DAILY 06/22/17 [History] Melatonin 10 mg PO BEDTIME 06/22/17 [History] Vit B12 Injection. 1 injection IM ASDIRECTED 06/22/17 [History] Vit D3 & K/Berberine HCl/Hops [Ostera] 1 tab PO DAILY 06/22/17 [History] amLODIPine [Norvasc] 5 mg PO DAILY 06/22/17 [History] glipiZIDE [Glipizide Xl] 2.5 mg PO DAILY 06/22/17 [History] hydroCHLOROthiazide [Hydrochlorothiazide] 25 mg PO DAILY 06/22/17 [History] rOPINIRole [Requip] 1 mg PO DAILY 06/22/17 [History] Lidocaine 5% [Lidoderm 5%] 1 patch TOP ASDIRECTED PRN 03/21/18 [History] rOPINIRole [Requip] 2 mg PO BEDTIME 03/21/18 [History] Albuterol Sulfate [Proair Respiclick] 1 - 2 puff INH ASDIRECTED PRN 05/20/19 [History] Codeine/Promethazine HCl [Promethazine-Codeine Syrup] 10 ml PO ASDIRECTED 05/20/19 [History] Empagliflozin [Jardiance] 10 mg PO DAILY 05/20/19 [History] Famotidine [Pepcid] 40 mg PO BEDTIME 05/20/19 [History] Fluticasone Furoate [Arnuity Ellipta] 1 spray PO DAILY 05/20/19 [History] Krill/Om-3/DHA/EPA/Phospho/Ast [[place]-3 Krill Oil 300 mg Sfgl] 300 mg PO DAILY 05/20/19 [History] Milnacipran HCl [Savella] 50 mg PO Q12H 05/20/19 [History] Multivitamin With Minerals. 1 tab PO DAILY 05/20/19 [History] Naltrexone. 05/20/19 [History] Ondansetron [Zofran ODT] 4 mg PO Q6H PRN 05/20/19 [History] Papaya 6 tab PO ASDIRECTED 05/20/19 [History] Potassium Chloride 10 meq PO ASDIRECTED 05/20/19 [History] Rosuvastatin [Crestor] 5 mg PO DAILY 05/20/19 [History] Vitamin E 400 unit PO DAILY 05/20/19 [History] cycloSPORINE [Restasis] 1 drop EYEBOTH BID 05/20/19 [History] Acetaminophen/oxyCODONE [Percocet 325-5 MG] 1 each PO Q6H PRN #20 tab 10/03/20 [Rx] Past Medical History Cardiovascular History: Reports: Hypertension Gastrointestinal History: Reports: Colon Polyp, GERD, PUD Genitourinary History: Reports: Renal Calculus Musculoskeletal History: Reports: Fibromyalgia, RA Neurological History: Reports: Migraines Psychiatric History: Reports: Anxiety Endocrine/Metabolic History: Reports: Diabetes, Type II Oncologic (Cancer) History: Reports: Breast - Past Surgical History HEENT Surgical History: Reports: Cataract Surgery GI Surgical History: Reports: Appendectomy, Cholecystectomy, Other (See Below) Other GI Surgeries/Procedures: gasterectomy Female Surgical History: Reports: Breast Reconstruction, D&C, Hysterectomy, Mastectomy, Ureteral Stent Oncologic Surgical History: Reports: Mastectomy Social & Family History - Family History Family Medical History: No Pertinent Family History - Tobacco Use Tobacco Use Status *Q: Never Tobacco User - Caffeine Use Caffeine Use: Reports: Coffee, Tea - Recreational Drug Use Recreational Drug Use: No - Living Situation & Occupation Living situation: Reports: , with Spouse Occupation: Retired Review of Systems - Review of Systems Review Of Systems: Comprehensive ROS is negative, except as noted in HPI. ED EXAM, GENERAL - Physical Exam Exam: See Below Exam Limited By: No Limitations General Appearance: Alert, WD/WN, No Apparent Distress Respiratory/Chest: No Respiratory Distress, Lungs Clear, Normal Breath Sounds, No Accessory Muscle Use, Chest Non-Tender Cardiovascular: Normal Peripheral Pulses, Regular Rate, Rhythm, No Edema, No Murmur Peripheral Pulses: 2+: Radial (L), Radial (R) Extremities: Normal Inspection, Normal Capillary Refill Neurological: Alert, Oriented, Normal Cognition, No Motor/Sensory Deficits Psychiatric: Normal Affect, Normal Mood Skin Exam: Warm, Dry, Intact, Normal Color, No Rash Course - Vital Signs Last Recorded V/S: Last Vital Signs Temp 97.0 F 10/03/20 15:51 Pulse 85 10/03/20 15:51 Resp 16 10/03/20 15:51 BP 129/80 10/03/20 15:51 Pulse Ox 87 L 10/03/20 15:51 - Orders/Labs/Meds Orders: Active Orders 24 hr Category Date Time Status DME for Discharge [COMM] Routine Oth 10/03/20 17:00 Ordered - Re-Assessments/Exams Free Text/Narrative Re-Assessment/Exam: 10/03/20 16:30 Patient presents to the ED for her multiple injuries after her fall. Have ordered shoulder x-rays of her left shoulder for today's purposes. She was already given 1 mg Dilaudid en route, states this did take care of some of the pain. We will hold off on pain management at this time until she request something further. Departure - Departure Time of Disposition: 17:11 Disposition: Home, Self-Care 01 Condition: Good Clinical Impression: Fall Qualifiers: Encounter type: initial encounter Qualified Code(s): W19.XXXA - Unspecified fall, initial encounter Proximal humerus fracture Qualifiers: Encounter type: initial encounter Fracture type: closed Fracture morphology: other fracture Fracture alignment: nondisplaced Laterality: left Qualified Code(s): S42.295A - Other nondisplaced fracture of upper end of left humerus, initial encounter for closed fracture - Discharge Information *PRESCRIPTION DRUG MONITORING PROGRAM REVIEWED*: Yes *COPY OF PRESCRIPTION DRUG MONITORING REPORT IN PATIENT RIVERA: No Prescriptions: Acetaminophen/oxyCODONE [Percocet 325-5 MG] 1 each PO Q6H PRN #20 tab PRN Reason: Pain Instructions: Humerus Fracture Treated With Immobilization, [id number] Referrals: King Gee MD [Ordering Only Provider] - Forms: ED Department Discharge Additional Instructions: You have been evaluated in the ED for your fall and left shoulder pain. Your x-ray demonstrated an impacted fracture of your proximal left humerus. This has been treated with immobilization via sling and swath. Please use ice as tolerated to the affected area. You may take Tylenol 500 mg or ibuprofen 600mg q6 hrs for pain relief. Please do so until you have a tolerable level of pain with activity. Do not exceed 4000mg Tylenol, Do not exceed 3200mg ibuprofen in a 24 hour time period. You were given a prescription for a strong pain medication, oxycodone/acetaminophen 5/325, please take 1 tab every 6 hours as needed for pain not relieved by Tylenol or ibuprofen alone. Please note this does contain Tylenol in it, so do not take more than 4000 mg in a 24-hour time span. These medications can be addictive, so please take as few as possible to achieve adequate pain control. These meds can also be quite constipating, recommend that you increase your oral fluid intake and take a stool softener like MiraLAX while taking these medications. Please call Ortho for follow-up and further evaluation Dr. Gee was consulted on your case today, he did review your films. He states that their telephone number [phone], he notes that someone will be in his clinic as early as 7:30 AM central time tomorrow October 04, 2020. Please call sometime tomorrow to obtain an appointment for further evaluation and management of your humerus fracture. Please return to ED if your symptoms should change or worsen. Sepsis Event Note (ED) - Evaluation Sepsis Screening Result: No Definite Risk - Focused Exam Vital Signs: Vital Signs Temp Pulse Resp BP Pulse Ox 10/03/20 15:51 97.0 F 85 16 129/80 87 L - My Orders Last 24 Hours: My Active Orders 10/03/20 17:00 DME for Discharge [COMM] Routine - Assessment/Plan Last 24 Hours: My Active Orders 10/03/20 17:00 DME for Discharge [COMM] Routine
--- NOTE | 2020-10-03 17:00 | CR ---
PROCEDURE INFORMATION: Exam: XR Left Shoulder Exam date and time: 10/03/2020 4:40 PM Age: 75 years old Clinical indication: Pain; Shoulder; Left TECHNIQUE: Imaging protocol: XR Left shoulder. Views: 2 or more views. COMPARISON: No relevant prior studies available. FINDINGS: Bones/joints: Fracture of the left proximal humerus is present with slight impaction. There is no evidence of joint malalignment or dislocation. Soft tissues: Overlying soft tissue swelling is present. Surgical clips noted within the left axilla. IMPRESSION: 1. Fracture of the left proximal humerus is present with slight impaction. 2. Overlying soft tissue swelling is present. 3. No evidence of acute dislocation. Thank you for allowing us to participate in the care of your patient. Dictated and Authenticated by: Kris Rojas DO 10/03/2020 5:56 PM Central Time ([place] & [place]) [facility]
[2020-10-03] MEDS ORDERED: HYDROmorphone 0.5 MG/0.5 ML Syringe IVPUSH ONE (17:17)
== END 2020-10-03 17:38 | disposition home or self-care (01) ==
LOC: JD.ED 15:45
DX: S42.295A Other nondisplaced fracture of upper end of left humerus, initial encounter for closed fracture (principal); I10 Essential (primary) hypertension; F41.9 Anxiety disorder, unspecified; E11.9 Type 2 diabetes mellitus without complications; K21.9 Gastro-esophageal reflux disease without esophagitis; Z88.1 Allergy status to other antibiotic agents; Z91.041 Radiographic dye allergy status; Z91.048 Other nonmedicinal substance allergy status; Z88.8 Allergy status to other drugs, medicaments and biological substances; Z79.899 Other long term (current) drug therapy; Z79.84 Long term (current) use of oral hypoglycemic drugs; W01.0XXA Fall on same level from slipping, tripping and stumbling without subsequent striking against object, initial encounter
CPT/HCPCS: 73030; 96374; 99283; J1170

== ENCOUNTER 2022-09-24 20:10 | Emergency (ER) | payer OTHER, MEDICARE ==
[2022-09-24 22:20] VITALS: BP 156/74; PULSE 77
== END 2022-09-25 01:45 | disposition home or self-care (01) ==
LOC: JD.ED 20:10
DX: S63.502A Unspecified sprain of left wrist, initial encounter (principal); I10 Essential (primary) hypertension; E11.9 Type 2 diabetes mellitus without complications; Z79.899 Other long term (current) drug therapy; Z88.0 Allergy status to penicillin; Z91.041 Radiographic dye allergy status; Z88.1 Allergy status to other antibiotic agents; W01.0XXA Fall on same level from slipping, tripping and stumbling without subsequent striking against object, initial encounter
CPT/HCPCS: 73110-26-LT; 73110-LT; 99283

== ENCOUNTER 2023-08-31 13:14 | Emergency (ER) | payer OTHER, MEDICARE ==
[2023-08-31 19:59] VITALS: BP 135/79; PULSE 70
== END 2023-08-31 16:48 | disposition home or self-care (01) ==
LOC: JD.ED 13:14
DX: S02.31XA Fracture of orbital floor, right side, initial encounter for closed fracture (principal); S09.90XA Unspecified injury of head, initial encounter; S00.11XA Contusion of right eyelid and periocular area, initial encounter; I10 Essential (primary) hypertension; K21.9 Gastro-esophageal reflux disease without esophagitis; E11.9 Type 2 diabetes mellitus without complications; Z88.0 Allergy status to penicillin; Z91.041 Radiographic dye allergy status; Z88.1 Allergy status to other antibiotic agents; Z88.8 Allergy status to other drugs, medicaments and biological substances; Z79.899 Other long term (current) drug therapy; W07.XXXA Fall from chair, initial encounter
CPT/HCPCS: 70450; 70450-26; 70486; 70486-26; 99283

== ENCOUNTER 2023-11-06 22:14 | Emergency (ER) | payer OTHER, MEDICARE ==
[2023-11-06] MEDS ORDERED: Sodium Chloride 0.9% 10 ML Syringe FLUSH PRN (22:54)
[2023-11-06 23:01] LABS: BASOPHILS ABSOLUTE AUTO 0.1 K/mm3 (0.0-0.2); BASOPHILS PERCENT AUTO 0.5 % (0.0-1.0); HEMATOCRIT 47.3 % (37.0-47.0); IMMATURE GRAN ABSOLUTE AUTO 0.05 K/mm3 (0.00-0.05); IMMATURE GRAN PERCENT AUTO 0.4 % (0.0-0.4); LYMPHOCYTES ABSOLUTE AUTO 0.6 K/mm3 (1.0-4.8); LYMPHOCYTES PERCENT AUTO 4.6 % (24.0-44.0); MEAN CORPUSCULAR HEMOGLOBIN 31.9 pg (28.0-32.0); MEAN CORPUSCULAR HGB CONC 33.8 g/dl (32.0-36.0); MEAN CORPUSCULAR VOLUME 94.2 fl (83.0-99.0); MEAN PLATELET VOLUME 10.4 fl (9.4-12.3); MONOCYTES ABSOLUTE AUTO 0.8 K/mm3 (0.0-0.8); MONOCYTES PERCENT AUTO 6.3 % (0.0-8.0); NEUTROPHILS ABSOLUTE AUTO 11.8 K/mm3 (1.8-7.7); NEUTROPHILS PERCENT AUTO 88.2 % (41.0-71.0); PLATELET COUNT,PLT 283 K/mm3 (150-400); RED BLOOD CELL COUNT 5.02 M/mm3 (4.10-5.30)
[2023-11-06] MEDS ORDERED: Ondansetron 4 MG/2 ML SDV ONE (23:03)
[2023-11-06] MEDS ORDERED: Ondansetron 4 MG/2 ML SDV IVPUSH ONE (23:06)
[2023-11-06 23:10] LABS: ALANINE AMINOTRANSFERASE,ALT 27 U/L (14-59); ALBUMIN 4.4 g/dl (3.4-5.0); ALKALINE PHOSPHATASE 57 U/L (46-116); ANION GAP 16.6 (5-15); ASPARTATE AMNIOTRANSFERASE,AST 20 U/L (15-37); BILIRUBIN TOTAL 0.6 mg/dL (0.2-1.0); BLOOD UREA NITROGEN,BUN 15 mg/dL (7-18); C-REACTIVE PROTEIN <0.2 mg/dL (<1.0); CALCIUM 9.4 mg/dL (8.5-10.1); CARBON DIOXIDE,CO2 27 mEq/L (21-32); CHLORIDE,CL 99 mEq/L (98-107); EST CRCL DRUG DOSING (CG) 42.39 mL/min; ESTIMATED GFR 58 mL/min (>60); GLUCOSE RANDOM 181 mg/dL (70-99); LIPASE 9 U/L (16-77); MAGNESIUM 1.8 mg/dL (1.8-2.4); POTASSIUM,K 3.6 mEq/L (3.5-5.1); PROTEIN TOTAL,TP 8.7 g/dl (6.4-8.2); SODIUM,NA 139 mEq/L (136-145)
[2023-11-06 23:51] LABS: CORONAVIRUS COVID-19 NAA NEGATIVE (NEGATIVE); INFLUENZA A NAA NEGATIVE (NEGATIVE); RESPIRATORY SYNCYTIAL VIR NAA NEGATIVE (NEGATIVE)
[2023-11-07] MEDS ORDERED: Naloxone 0.4 MG/ML SDV IVPUSH PRN (00:36)
[2023-11-07] MEDS ORDERED: Morphine 4 MG/ML Syringe IM ONE (00:36)
[2023-11-07] MEDS ORDERED: Morphine 4 MG/ML Syringe IVPUSH ONE (00:58)
[2023-11-07 01:10] LABS: APPEARANCE,URINE CLEAR (Clear); BILIRUBIN,URINE NEGATIVE (Negative); COLOR,URINE YELLOW (Yellow); GLUCOSE,URINE 2+ (Negative); KETONES,URINE 2+ (Negative); LEUKOCYTE ESTERASE,URINE NEGATIVE (Negative); NITRITE,URINE NEGATIVE (Negative); OCCULT BLOOD,URINE TRACE-LYSED (Negative); PROTEIN,URINE 1+ (Negative); UROBILINOGEN,URINE 0.2 (0.2-1.0)
[2023-11-07 01:20] LABS: BACTERIA,URINE MODERATE /hpf (FEW); MUCUS,URINE NOT SEEN /hpf (FEW); RBC,URINE 0-5 /hpf (0-5); SQUAMOUS EPITHELIAL CELLS,UR 0-5 /hpf (0-5); WBC,URINE 0-5 /hpf (0-5)
[2023-11-07] MEDS ORDERED: Ondansetron 4 MG/2 ML SDV IVPUSH ONE (02:56)
[2023-11-07] MEDS ORDERED: cefTRIAXone 1 GM in Sodium Chloride 0.9% 100 ML IV ONE (03:21)
[2023-11-07 03:23] VITALS: BP 144/80
[2023-11-07 04:17] VITALS: PULSE 71
== END 2023-11-07 04:15 | disposition home or self-care (01) ==
LOC: JD.ED 22:14
DX: N12 Tubulo-interstitial nephritis, not specified as acute or chronic (principal); R93.89 Abnormal findings on diagnostic imaging of other specified body structures; I10 Essential (primary) hypertension; K21.9 Gastro-esophageal reflux disease without esophagitis; E11.9 Type 2 diabetes mellitus without complications; Z79.899 Other long term (current) drug therapy; Z88.8 Allergy status to other drugs, medicaments and biological substances; Z91.041 Radiographic dye allergy status; Z88.0 Allergy status to penicillin; Z88.1 Allergy status to other antibiotic agents; Z20.822 Contact with and (suspected) exposure to COVID-19
CPT/HCPCS: 0241U; 36415; 74176; 80053; 81001; 83605; 83690; 83735; 85025; 86140; 87086; 87088; 87186; 96365; 96375; 96376; 99284; J0696; J2270; J2405; J3490

== ENCOUNTER 2025-03-06 19:22 | Emergency (ER) | payer MEDICARE ==
[2025-03-06] MEDS: Ondansetron 4 MG/2 ML SDV IVPUSH ONE ×2 (20:36→23:19)
[2025-03-06] MEDS: Sodium Chloride 0.9% 1,000 ML IV SCH (20:36)
[2025-03-06] MEDS ORDERED: Naloxone 0.4 MG/ML SDV IVPUSH PRN (20:40)
[2025-03-06 20:49] LABS: BASOPHILS ABSOLUTE AUTO 0.1 K/mm3 (0.0-0.2); BASOPHILS PERCENT AUTO 0.6 % (0.0-1.0); EOSINOPHILS PERCENT AUTO 0.1 % (0.0-6.0); HEMATOCRIT 45.9 % (37.0-47.0); HEMOGLOBIN 15.7 gm/dl (12.0-16.0); IMMATURE GRAN ABSOLUTE AUTO 0.02 K/mm3 (0.00-0.05); IMMATURE GRAN PERCENT AUTO 0.2 % (0.0-0.4); LYMPHOCYTES ABSOLUTE AUTO 0.6 K/mm3 (1.0-4.8); LYMPHOCYTES PERCENT AUTO 5.7 % (24.0-44.0); MEAN CORPUSCULAR HEMOGLOBIN 31.9 pg (28.0-32.0); MEAN CORPUSCULAR HGB CONC 34.2 g/dl (32.0-36.0); MEAN CORPUSCULAR VOLUME 93.3 fl (83.0-99.0); MEAN PLATELET VOLUME 10.1 fl (9.4-12.3); MONOCYTES ABSOLUTE AUTO 0.9 K/mm3 (0.0-0.8); MONOCYTES PERCENT AUTO 7.6 % (0.0-8.0); NEUTROPHILS ABSOLUTE AUTO 9.6 K/mm3 (1.8-7.7); NEUTROPHILS PERCENT AUTO 85.8 % (41.0-71.0); PLATELET COUNT,PLT 306 K/mm3 (150-400); RED BLOOD CELL COUNT 4.92 M/mm3 (4.10-5.30); WHITE BLOOD CELL COUNT,WBC 11.22 K/mm3 (3.9-11.3)
[2025-03-06] MEDS: fentaNYL 100 MCG/2 ML SDV IVPUSH ONE ×2 (20:50→22:16)
[2025-03-06 20:58] LABS: APPEARANCE,URINE CLEAR (Clear); BILIRUBIN,URINE NEGATIVE (Negative); COLOR,URINE YELLOW (Yellow); GLUCOSE,URINE 2+ (Negative); KETONES,URINE 2+ (Negative); LEUKOCYTE ESTERASE,URINE NEGATIVE (Negative); NITRITE,URINE NEGATIVE (Negative); OCCULT BLOOD,URINE 1+ (Negative); PROTEIN,URINE 1+ (Negative); UROBILINOGEN,URINE 0.2 (0.2-1.0)
[2025-03-06 21:20] LABS: ANION GAP 14.8 (5-15); BILIRUBIN TOTAL 0.4 mg/dL (0.2-1.0); EST CRCL DRUG DOSING (CG) 40.04 mL/min; POTASSIUM,K 3.8 mEq/L (3.5-5.1); PROTEIN TOTAL,TP 8.1 g/dl (6.4-8.2)
[2025-03-06 22:43] LABS: BACTERIA,URINE FEW /hpf (FEW); MUCUS,URINE NOT SEEN /hpf (FEW); SQUAMOUS EPITHELIAL CELLS,UR 0-5 /hpf (0-5); WBC,URINE 0-5 /hpf (0-5)
[2025-03-06] MEDS: Acetaminophen/HYDROcodone 325-5 MG Tab PO ONE (23:13)
[2025-03-06] MEDS: Tamsulosin 0.4 MG Cap.ER PO ONE (23:13)
[2025-03-06] MEDS: Ondansetron 4 MG/2 ML SDV ONE (23:25)
[2025-03-06 23:26] VITALS: BP 133/71; PULSE 71
== END 2025-03-06 23:25 | disposition home or self-care (01) ==
LOC: JD.ED 19:22
DX: N13.2 Hydronephrosis with renal and ureteral calculous obstruction (principal); I10 Essential (primary) hypertension; E11.9 Type 2 diabetes mellitus without complications; Z88.1 Allergy status to other antibiotic agents; Z91.041 Radiographic dye allergy status; Z88.8 Allergy status to other drugs, medicaments and biological substances; Z79.899 Other long term (current) drug therapy; Z86.16 Personal history of COVID-19; Z90.49 Acquired absence of other specified parts of digestive tract; Z90.710 Acquired absence of both cervix and uterus
CPT/HCPCS: 36415; 74176; 80053; 81001; 83690; 85025; 96361; 96374; 96375; 96376; 99284; A9270; J2405; J3010; J7030